=== PATIENT | male | born 1975 | race Caucasian/White ===

== ENCOUNTER 2019-07-28 12:46 | Emergency (ER) | payer BC ==
[~2019-07-28] VITALS: Wt 115.7 kg
--- NOTE | ~2019-07-28 | EKG ---
[place], [place] ELECTROCARDIOGRAM REPORT NAME: MERRICK ROWLAND UNIT #: [id number] ROOM: DOCTOR: EPIPHANY DRAFT REPORT BIRTHDATE: [birth year] [facility] Test Date: 2019-07-28 Test Time: 14:16:58 Pat Name: MERRICK ROWLAND Department: Room: Gender: Chemical Process Engineer: : [id number] Requested By: JOANN KAISER Order Number: [id number] Reading MD: Ruth Blackwood MD Measurements Intervals [place] Rate: 85 P: 10 CO: 138 QRS: -1 QRSD: 93 T: -10 QT: 364 QTc: 433 Interpretive Statements Sinus rhythm Left ventricular hypertrophy Borderline T abnormalities, inferior leads Baseline wander in lead(s) V1 Electronically Signed On 07-31-2019 7:43:34 PDT by Ruth Blackwood MD CM:EKGRPT:ELECTROCARDIOGRAM REPORT [id number] JOANN KAISER EPIPHANY DRAFT REPORT JOANN KAISER
[2019-07-28 14:37] LABS: BASO % 0.6 % (0.0-1.0); EOS # 0.1 10*3/uL (0.0-0.4); EOS % 1.1 % (1.0-4.0); HEMATOCRIT 43.3 % (42.0-52.0); HEMOGLOBIN 14.9 g/dl (14.0-18.0); LYMPH # 1.4 10*3/uL (1.3-4.4); LYMPH % 26.1 % (27.0-41.0); MEAN CELL VOLUME 87.3 fl (80.0-94.0); MEAN CORPUSCULAR HGB CONC 34.4 g/dl (33.0-37.0); MEAN PLATELET VOLUME 10.2 fl (9.6-12.3); MONO # 0.4 10*3/uL (0.1-1.0); MONO % 7.8 % (3.0-9.0); NEUT # 3.4 10*3/uL (2.3-7.9); NEUT % 63.5 % (47.0-73.0); PLATELET COUNT AUTOMATED 232 10*3/uL (130-400); RED BLOOD COUNT 4.96 10*6/uL (4.50-5.90); RED CELL DISTRI WIDTH 12.3 % (0-14.5); WHITE BLOOD COUNT 5.4 10*3/uL (4.8-10.8)
[2019-07-28 14:38] LABS: BILIRUBIN NEGATIVE (NEGATIVE); BLOOD NEGATIVE (NEGATIVE); CLARITY SL CLOUDY (CLEAR); COLOR YELLOW (YELLOW); GLUCOSE NEGATIVE (NEGATIVE); KETONE NEGATIVE (NEGATIVE); LEUKO ESTERASE NEGATIVE (NEGATIVE); NITRITE NEGATIVE (NEGATIVE); PH 5.5 (5.0-9.0); SPECIFIC GRAVITY >= 1.030 (1.005-1.030); UROBILINOGEN 0.2 E.U./dl (0.2-1.0)
[2019-07-28 14:54] LABS: INTERNATIONAL NORM RATIO 0.9 (2.0-3.5)
[2019-07-28 14:55] LABS: EPITHELIAL CELLS 0-2; MUCOUS 3+
[2019-07-28 14:59] LABS: ALBUMIN 4.1 gm/dl (3.1-4.5); ALKALINE PHOSPHATASE 94 U/L (45-117); BUN 12 mg/dl (7-24); CHLORIDE 107 mmol/L (98-107); CREATININE 0.73 mg/dL (0.70-1.30); LIPASE 92 U/L (73-393); POTASSIUM 3.7 mmol/L (3.5-5.1); SGOT/AST 36 IU/L (3-35); SGPT/ALT 80 U/L (12-78); SODIUM 140 mmol/L (136-145); TOTAL PROTEIN 7.9 gm/dL (6.4-8.2)
[2019-07-28 15:04] LABS: TROPONIN I < 0.015 ng/ml (<0.045)
== END 2019-07-28 16:26 | disposition home or self-care (01) ==
LOC: ED 12:46
PROVIDERS: Nurse Practitioner Family
DX: R60.0 Localized edema (principal); M79.661 Pain in right lower leg; M79.662 Pain in left lower leg; Z91.040 Latex allergy status